=== PATIENT | female | born 1995 | race Caucasian/White ===

== ENCOUNTER 2022-10-25 09:36 | Emergency (ER) | payer MEDICAID ==
[~2022-10-25] VITALS: Ht 165.1 cm; Wt 46.4 kg
[~2022-10-25 09:36] MED LIST: IBUP-1984 PO
[2022-10-25 09:40] VITALS: BP 105/72
[2022-10-25] MEDS ORDERED: ketorolac trometh inj. 60 MG/2 ML VIAL IM ONE (11:15)
[2022-10-25] MEDS ORDERED: IBUP-1986 PO (11:23)
== END 2022-10-25 12:11 | disposition home or self-care (01) ==
LOC: ER 09:36
DX: S93.601D Unspecified sprain of right foot, subsequent encounter (principal); Z79.899 Other long term (current) drug therapy; X58.XXXD Exposure to other specified factors, subsequent encounter
CPT/HCPCS: 73630; 96372; 99284; J1885; L4360

== ENCOUNTER 2023-10-04 10:39 | Outpatient (CLI) | payer MEDICAID ==
[~2023-10-04 10:39] MED LIST changes: +IBUP-1986 PO
== END 2023-10-04 23:59 | disposition home or self-care (01) ==
LOC: RAD 10:39
PROVIDERS: ATTEND Podiatrist Foot & Ankle Surgery
DX: S92.301A Fracture of unspecified metatarsal bone(s), right foot, initial encounter for closed fracture (principal); S93.324A Dislocation of tarsometatarsal joint of right foot, initial encounter; S93.621A Sprain of tarsometatarsal ligament of right foot, initial encounter; M79.671 Pain in right foot; M25.374 Other instability, right foot; M81.8 Other osteoporosis without current pathological fracture; Z98.890 Other specified postprocedural states; X58.XXXA Exposure to other specified factors, initial encounter; Y93.89 Activity, other specified; Y92.89 Other specified places as the place of occurrence of the external cause; Y99.8 Other external cause status
CPT/HCPCS: 73700